=== PATIENT | male | born 1935 | race Caucasian/White ===

== ENCOUNTER 2018-02-05 09:29 | Inpatient (IN) | payer MEDICARE, BC ==
[2018-02-05 10:54] VITALS: BP 156/78
[2018-02-05] MEDS ORDERED: Maalox 30 mL Cup PO PRN (10:56)
[2018-02-05] MEDS ORDERED: Magnesium Hydroxide (MOM) 30 mL UDC PO PRN (10:56)
--- NOTE | 2018-02-05 12:05 | Diagnostic Imaging Report ---
Portable chest x-ray HISTORY: Shortness of breath. The heart size is normal. Atherosclerotic calcification seen in the aorta. No acute focal pulmonary processes. No hilar or mediastinal abnormalities. IMPRESSION: 1. No acute abnormalities 2. Atherosclerotic vascular changes
[2018-02-05 12:21] LABS: % BASOPHILS 0.6 % (0.0-2.0); % EOSINOPHILS 1.4 % (0.0-5.0); % LYMPHOCYTES 14.6 % (20.0-50.0); % MONOCYTES 8.1 % (2.0-10.0); % NEUTROPHILS 75.3 % (40.0-80.0); EOSINOPHILE ABSOLUTE 0.1 Th/cmm (0.1-0.4); HEMATOCRIT 41.2 % (41.0-60); HEMOGLOBIN 13.8 gm/dL (12-16); LYMPHOCYTE ABSOLUTE 0.9 Th/cmm (1.5-3.0); MEAN CELL VOLUME 95.7 fl (80-99); MEAN CORPUSCULAR HEMOGLOBIN 32.2 pg (27.0-31.0); MEAN CORPUSCULAR HGB CONC 33.6 pg (28.0-36.0); MEAN PLATELET VOLUME 5.6 fl; MONOCYTE ABSOLUTE 0.5 Th/cmm (0.3-1.0); NEUTROPHILE ABSOLUTE 4.5 Th/cmm (1.8-8.0); PLATELET COUNT 276 Th/cmm (150-400); RED CELL DISTRIBUTION WIDTH 12.9 % (11.5-20.0)
[2018-02-05 12:41] LABS: ALB/GLOB RATIO 1.3 (1.0-1.8); ALBUMIN 3.9 gm/dL (4.2-5.5); ALKALINE PHOSPHATASE 68 U/L (34-104); ANION GAP 13.4 (7.0-16.0); BILIRUBIN,TOTAL 0.3 mg/dL (0.3-1.0); BUN - UREA NITROGEN 20 mg/dL (7-25); CALCIUM SERUM 9.3 mg/dL (8.6-10.3); CARBON DIOXIDE 24.9 mEq/L (21.0-31.0); CHLORIDE 103 mEq/L (98-107); CHOLESTEROL 159 mg/dL (<200); CREATININE - SERUM 0.9 mg/dL (0.7-1.3); GLUCOSE 144 mg/dL (70-105); HDL -HIGH DENSITY LIPOPROTEIN 61 mg/dL (23-92); POTASSIUM SERUM 4.3 mEq/L (3.5-5.1); SGOT 19 U/L (13-39); SGPT/ALT 15 U/L (7-52); SODIUM SERUM 137 mEq/L (136-145); TOTAL PROTEIN,SERUM 6.9 gm/dL (6.0-8.3); TRIGLYCERIDES 106 mg/dL (<150)
[2018-02-05] MEDS: Calcium Carb/Vit D 500 mg/200 U Tab PO SCH (17:21)
--- NOTE | 2018-02-05 22:08 | Psychiatric Evaluation ---
DATE OF SERVICE: 02/05/2018 IDENTIFYING DATA: The patient is an 82-year-old male living with his family. Information obtained directly interviewing the patient as well as talking to his daughter who happened to be there by the bedside. CHIEF COMPLAINT: "I don't know. I'm feeling depressed and I want to end my life." HISTORY OF PRESENT ILLNESS: This is the first psychiatric hospitalization to [facility] for this patient who is reported to have been extremely depressed and has been asking his daughter to give some pills, so that he can kill himself. The patient has been very agitated. The patient is reported to have been presenting with depressive symptoms more and more for the past few months and the patient is being treated with the Lexapro, a little bit of Seroquel in July and then now he has been on the mirtazapine 15 mg at bedtime. The dose of the mirtazapine has been given by the research neurologist. The patient is reported to have been taken care of by his until recently and the patient's daughter has been there for the past few days when she has realized the patient has been insisting on ending his life and hence the patient has been brought over here. The patient is reported to have been mentioning that if he were in the hospital. They are going to give an injection where he can end his life. PAST PSYCHIATRIC HISTORY: Details are not known. MEDICAL HISTORY AND PHYSICAL EXAMINATION: Requested to be done by Dr. Elena. SUBSTANCE ABUSE HISTORY: None. PHYSICAL OR SEXUAL ABUSE HISTORY: None. LEGAL PROBLEMS: None at this time. STRENGTH AND ASSETS: The patient has good family support. MENTAL STATUS EXAMINATION: The patient is an 82-year-old very fragile, thin built, superficially cooperative. Eye contact is poor. Mood is noted to be depressed. Affect is constricted. The patient's insight and judgment at this time are noted to be still impaired. Impulse control is very poor. The patient is preoccupied with suicide. Coping skills at this time are noted to be extremely poor. Attention span and concentration are noted to be poor. The patient, however, is fully aware that he is in the hospital. The patient is getting extremely anxious and confused. He has been having difficult time to get his date of , but he states that he is in his 80s. Attention span is noted to be poor. DIAGNOSTIC IMPRESSION: AXIS I: Major depressive disorder, recurrent and severe. AXIS II: None. AXIS III: As per Dr. Elena. IMMEDIATE TREATMENT PLAN: The patient is going to be observed on inpatient unit, provided with supportive psychotherapy. The patient is going to be encouraged to verbalize the concerns rather than to act out. Once stabilized, the patient is going to be discharged to self to be followed up on an outpatient basis. The patient is going to be continued for now with the Remeron and the patient's blood pressure is coming high and hence the patient is going to be started with the metoprolol, which has been recently discontinued. The patient's problems have started after he sustained a fall and multiple medical workups have been done, but they do not find any problem, but the patient is reported to have been incontinent since then on and later the patient is reported to have climbed a tree and when he was trying to cut the branches and then he fell and the family is thinking that these falls have something to do with the patient's deterioration of the medical issues. JOB# [id number]
--- NOTE | 2018-02-06 09:06 | History and Physical ---
History of Present Illness - HPI Chief Complaint: Psychosis HPI: 82 y/o male who presents to [facility] for direct admission to [facility] from [facility] for psychosis with suicidal ideations. The patient was found to have an increased amount of anxiety following two major falls this past year. Patient has been experiencing increased depression and feels like a burden to his family. Patient presents with feelings of hopelessness. Patient has a previous medical history of HTN, Prostate CA, h/o subdural hematoma, UTI on Keflex. Vital Signs: Last Vital Signs Temp 98.3 F 02/06/18 05:34 Pulse 79 02/06/18 05:34 Resp 18 02/06/18 05:34 BP 140/80 02/06/18 05:34 Pulse Ox 97 02/06/18 05:34 Past Medical History Cardiovascular: Report: HTN Pulmonary: Report: No Pertinent Hx [employer]: Report: Other (h/o subdural hematoma) GI: Report: No Pertinent Hx Psych: Report: Anxiety, Depression Musculoskeletal: Report: No Pertinent Hx Rheumatologic: Report: No pertinent Hx Infectious Disease: Report: No Pertinent Hx Renal/: Report: UTI, Prostate CA Endocrine: Report: No Pertinent Hx Dermatology: Report: No Pertinent Hx - Past Surgical History Past Surgical History: No pertinent Hx Social History Smoke: No Alcohol: None Drugs: None Lives: With Family - Allergies Allergies/Adverse Reactions: Allergies Allergy/AdvReac Type Severity Reaction Status Date / Time No Known Allergies Allergy Verified 02/05/18 10:54 Review of Systems - Review of Systems Constitutional: Report: No Significant Eyes: Report: No Significant ENT: Report: No Significant Respiratory: Report: No Significant Cardiovascular: Report: No Significant Gastrointestinal: Report: No Significant Musculoskeletal: Report: No Significant Skin: Report: No Significant Neurological: Report: No Significant Physical Exam - Physical Exam HEENT: Report: Ears Nose Throat within normal limits, Pharnyx within normal limits Neck: Report: Within normal limits Cardiovascular Systems: Report: +s1/s2 noted, Regular, Rate and Rhythm Respiratory: Report: Breath Sounds are within normal limits, Clear to Auscultation of lung rincon Abdomen: Report: Non-tender to palpation Back: Report: Inspection of back is within normal limits. Extremities: Report: Non-tender to palpation. Skin: Report: Color of skin is within normal limits Neuro/Psych: Report: Mood affect is within normal limits, A+Ox3 - Lab Results All Lab Results last 24 hours: Laboratory Results - last 24 hr 02/05/18 02/05/18 12:15 12:15 WBC 6.0 RBC 4.30 Hgb 13.8 Hct 41.2 MCV 95.7 MCH 32.2 H MCHC Differential 33.6 RDW 12.9 Plt Count 276 MPV 5.6 Neutrophils % 75.3 Lymphocytes % 14.6 L Monocytes % 8.1 Eosinophils % 1.4 Basophils % 0.6 Sodium 137 Potassium 4.3 Chloride 103 Carbon Dioxide 24.9 Anion Gap 13.4 BUN 20 Creatinine 0.9 Est GFR ( Amer) TNP Est GFR (Non-Af Amer) TNP BUN/Creatinine Ratio 22.2 Glucose 144 H Calcium 9.3 Total Bilirubin 0.3 AST 19 ALT 15 Alkaline Phosphatase 68 Total Protein 6.9 Albumin 3.9 L Globulin 3.0 Albumin/Globulin Ratio 1.3 Triglycerides 106 Cholesterol 159 LDL Cholesterol Direct 83 HDL Cholesterol 61 - Assessment Assessment: psychosis depression anxiety disorder HTN Prostate CA h/o subdural hematoma UTI - Plan Plan: admit to [facility] continue current treatment.
[2018-02-06] MEDS: Calcium Carb/Vit D 500 mg/200 U Tab PO SCH ×2 (09:45→17:20)
[2018-02-06] MEDS: Multivitamin Tab PO SCH (09:46)
[2018-02-06] MEDS: POLYETHYLENE GLYCOL 3350 17 GM PACK PO SCH (09:46)
--- NOTE | 2018-02-06 23:46 | Progress Notes ---
DATE: 02/06/2018 SUBJECTIVE: Staff was spoken to. The patient is interviewed. Mood is noted to be depressed. Affect is constricted. The patient's daughter has been spoken to in detail. She has been visiting the patient this morning. The patient is stating that getting old and then not able to eat properly is the one that has been making him to be very much depressed. The patient's daughter has been there and stating that he has been eating alright, but at the same time, he is very critical of himself and has been ____ to suicidal thoughts. The patient's coping skills are noted to be very poor. The patient is reporting that his should be coming in this afternoon to visit him. ASSESSMENT: The patient is still depressed and suicidal. PLAN: To continue the patient with the supportive therapy. I encouraged the patient to verbalize the concerns rather than to act out. [facility]# [id number]
--- NOTE | 2018-02-07 08:24 | General Progress Note ---
Subjective - Review of Systems Service Date: 02/07/18 Subjective: Patient was seen and examined. VS T 98.3 P78 R18 BP 114/53 Objective - Results Result Diagrams: 02/05/18 12:15 02/05/18 12:15 Recent Labs: Laboratory Last Values WBC 6.0 Th/cmm (4.8-10.8) 02/05/18 12:15 RBC 4.30 Mil/cmm (3.80-5.80) 02/05/18 12:15 Hgb 13.8 gm/dL (12-16) 02/05/18 12:15 Hct 41.2 % (41.0-60) 02/05/18 12:15 MCV 95.7 fl (80-99) 02/05/18 12:15 MCH 32.2 pg (27.0-31.0) H 02/05/18 12:15 MCHC Differential 33.6 pg (28.0-36.0) 02/05/18 12:15 RDW 12.9 % (11.5-20.0) 02/05/18 12:15 Plt Count 276 Th/cmm (150-400) 02/05/18 12:15 MPV 5.6 fl 02/05/18 12:15 Neutrophils % 75.3 % (40.0-80.0) 02/05/18 12:15 Lymphocytes % 14.6 % (20.0-50.0) L 02/05/18 12:15 Monocytes % 8.1 % (2.0-10.0) 02/05/18 12:15 Eosinophils % 1.4 % (0.0-5.0) 02/05/18 12:15 Basophils % 0.6 % (0.0-2.0) 02/05/18 12:15 Sodium 137 mEq/L (136-145) 02/05/18 12:15 Potassium 4.3 mEq/L (3.5-5.1) 02/05/18 12:15 Chloride 103 mEq/L (98-107) 02/05/18 12:15 Carbon Dioxide 24.9 mEq/L (21.0-31.0) 02/05/18 12:15 Anion Gap 13.4 (7.0-16.0) 02/05/18 12:15 BUN 20 mg/dL (7-25) 02/05/18 12:15 Creatinine 0.9 mg/dL (0.7-1.3) 02/05/18 12:15 Est GFR ( Amer) TNP 02/05/18 12:15 Est GFR (Non-Af Amer) TNP 02/05/18 12:15 BUN/Creatinine Ratio 22.2 02/05/18 12:15 Glucose 144 mg/dL (70-105) H 02/05/18 12:15 Calcium 9.3 mg/dL (8.6-10.3) 02/05/18 12:15 Total Bilirubin 0.3 mg/dL (0.3-1.0) 02/05/18 12:15 AST 19 U/L (13-39) 02/05/18 12:15 ALT 15 U/L (7-52) 02/05/18 12:15 Alkaline Phosphatase 68 U/L (34-104) 02/05/18 12:15 Total Protein 6.9 gm/dL (6.0-8.3) 02/05/18 12:15 Albumin 3.9 gm/dL (4.2-5.5) L 02/05/18 12:15 Globulin 3.0 gm/dL 02/05/18 12:15 Albumin/Globulin Ratio 1.3 (1.0-1.8) 02/05/18 12:15 Triglycerides 106 mg/dL (<150) 02/05/18 12:15 Cholesterol 159 mg/dL (<200) 02/05/18 12:15 LDL Cholesterol Direct 83 mg/dL (75-193) 02/05/18 12:15 HDL Cholesterol 61 mg/dL (23-92) 02/05/18 12:15 - Physical Exam Vitals and I&O: Vital Signs Temp 98.3 F 02/07/18 06:52 Pulse 78 02/07/18 06:52 Resp 18 02/07/18 06:52 BP 114/53 02/07/18 06:52 Pulse Ox 98 02/07/18 06:52 Intake & Output 02/06/18 02/07/18 02/07/18 18:59 06:59 18:59 Intake Total 120 Balance 120 Intake: Oral 120 Other: # Voids 3 # Bowel Movements 2 Active Medications: Current Medications Acetaminophen (Tylenol) 650 mg PO Q4HR PRN PRN Reason: Mild Pain / Temp above 100 Stop: 04/06/18 10:55 Calcium/Vitamin D (Oscal W/Vitamin D) 1 tab PO BID [facility] Stop: 04/06/18 16:59 Last Admin: 02/06/18 17:20 Dose: 1 tab Cephalexin Monohydrate (Keflex) 500 mg PO QID SUSIE Stop: 02/11/18 12:59 Last Admin: 02/06/18 20:39 Dose: 500 mg Docusate Sodium (Colace) 100 mg PO BID [facility] Stop: 04/06/18 16:59 Last Admin: 02/06/18 17:21 Dose: 100 mg Furosemide (Lasix) 20 mg PO DAILY PRN PRN Reason: Leg Swelling Stop: 04/07/18 08:59 Lorazepam (Ativan) 0.5 mg PO Q4HR PRN; Protocol PRN Reason: Agitation Stop: 03/07/18 10:55 Magnesium Hydroxide (Milk Of Magnesia) 30 ml PO HS PRN PRN Reason: Constipation Metoprolol Tartrate (Lopressor) 25 mg PO BID [facility] Stop: 04/06/18 16:59 Last Admin: 02/06/18 17:24 Dose: 25 mg Mirtazapine (Remeron) 7.5 mg PO HS SUSIE; Protocol Stop: 04/07/18 20:59 Last Admin: 02/06/18 20:40 Dose: 7.5 mg Multivitamins/Vitamin C (Theragran) 1 tab PO DAILY SUSIE Stop: 04/07/18 08:59 Last Admin: 02/06/18 09:46 Dose: 1 tab Polyethylene Glycol (Miralax) 17 gm PO DAILY SUSIE Stop: 04/07/18 08:59 Last Admin: 02/06/18 09:46 Dose: 17 gm Tamsulosin HCl (Flomax) 0.4 mg PO DAILY SUSIE Stop: 04/07/18 08:59 Last Admin: 02/06/18 09:47 Dose: 0.4 mg Zolpidem Tartrate (Ambien) 5 mg PO HS PRN PRN Reason: Insomnia Stop: 04/06/18 10:55 Last Admin: 02/06/18 20:39 Dose: 5 mg General: Alert, No acute distress HEENT: Atraumatic, PERRLA, EOMI Neck: Supple Cardiovascular: Regular rate, Normal S1 Lungs: Clear to auscultation Abdomen: Bowel sounds Neurological: Normal gait Assessment/Plan - Assessment Assessment: psychosis depression anxiety disorder HTN Prostate CA h/o subdural hematoma UTI - [facility] current treatment.
[2018-02-07] MEDS: Calcium Carb/Vit D 500 mg/200 U Tab PO SCH ×2 (08:41→16:48)
[2018-02-07] MEDS: Multivitamin Tab PO SCH (08:41)
[2018-02-07] MEDS: POLYETHYLENE GLYCOL 3350 17 GM PACK PO SCH (08:44)
--- NOTE | 2018-02-07 11:23 | Progress Notes ---
DATE: 02/07/2018 SUBJECTIVE: Staff was spoken to. The patient is interviewed. Mood is noted to be irritable. Affect is constricted. The patient continues to be isolative and withdrawn. The patient is still depressed. The patient is not able to verbalize why he has gotten to the point of hurting himself. The patient has been participating in the groups minimally; even though patient is eating, the patient states that he cannot eat. The patient's coping skills at this time are noted to be very poor at this time. ASSESSMENT: The patient is still depressed. PLAN: To continue the patient with the supportive therapy, encouraged the patient to verbalize the concerns rather than to act out. [facility]# [id number]
--- NOTE | 2018-02-07 16:42 | Consultation ---
DATE OF CONSULTATION: 02/06/2018 REFERRING PHYSICIAN: Aurora Llanos MD TYPE OF CONSULTATION: Psychology. HISTORY OF PRESENT ILLNESS: The patient is an 82-year-old male. The following is by review of the medical record and by the patient's self-report. The patient is being admitted due to increased agitation and depression. The patient's family reports that the patient had been depressed for several months even though he was being treated with Lexapro. The patient had verbalized to his family that he wanted to end his life. Therefore, the patient was brought here for stabilization. The patient lives with his family. The patient admits stating his wish to . PAST MEDICAL HISTORY: Please see history and physical by Dr. Elena. PAST PSYCHIATRIC HISTORY: Unknown. Records are unavailable. Information is provided by family mentioning history for depression. SUBSTANCE ABUSE HISTORY: The patient denied any history. PSYCHOSOCIAL HISTORY: The patient lives with his and family. The patient did not answer questions about occupational or educational history or mandaen affiliation. The patient denies any history of physical or sexual abuse or any current legal problems. The patient expects to return to living with his family. However, the patient is verbalizing an active wish to . The patient's daughter is very involved in his care. MENTAL STATUS EXAMINATION: The patient appears to be his stated age. The patient also appears to be fragile and thinly built. Attitude is superficially cooperative. Eye contact is poor. Mood is severely depressed. Affect is constricted. Speech is spontaneous. Thought process is depressogenic including helplessness and hopelessness as well as verbalizing a wish to . The patient admits having suicidal ideation with a plan and intention. The patient was requesting an injection to end his life and also asked his daughter to give him some pills, so that he could kill himself. There are no apparent delusions; however, this needs to be further evaluated. The patient is preoccupied with suicidal thinking. Impulse control is inadequate. Concentration is poor. Sensorium is alert and oriented to self and place. The patient did not participate in the memory assessment. The patient did not participate in the interpretation of proverbs. The patient presents as confused. Insight is impaired. Judgment is impaired. DIAGNOSTIC IMPRESSION: AXIS I: Major depressive disorder, recurrent, severe with suicidal ideation. AXIS II: Deferred. AXIS III: Per Dr. Elena. TREATMENT PLAN: The patient has been seen by Dr. Llanos for psychiatric evaluation and for the management of the patient's psychotropic medications. We will provide supportive psychotherapy to include reality orientation and integration. We will provide suicide prevention. We will encourage the patient to verbally contract for safety and no self-harm. We will encourage the patient to verbalize all his concerns versus any self-harm behavior. We will provide cognitive behavioral therapy for the patient's depression. We will provide coping strategies for phase of life issues. It is recommended that a possible Neurology consult to be provided and evaluation for dementia. We will provide family education if the opportunity is presented. We will continue with supportive therapy throughout the patient's hospital stay. Thank you, Dr. Llanos, for this consult and the opportunity to participate in this patient's care. JOB# [id number] MTDD
--- NOTE | 2018-02-08 08:25 | General Progress Note ---
Subjective - Review of Systems Service Date: 02/08/18 Subjective: Patient was seen and examined. VS T 98.0 P69 R19 BP 128/58 Objective - Results Result Diagrams: 02/05/18 12:15 02/05/18 12:15 Recent Labs: Laboratory Last Values WBC 6.0 Th/cmm (4.8-10.8) 02/05/18 12:15 RBC 4.30 Mil/cmm (3.80-5.80) 02/05/18 12:15 Hgb 13.8 gm/dL (12-16) 02/05/18 12:15 Hct 41.2 % (41.0-60) 02/05/18 12:15 MCV 95.7 fl (80-99) 02/05/18 12:15 MCH 32.2 pg (27.0-31.0) H 02/05/18 12:15 MCHC Differential 33.6 pg (28.0-36.0) 02/05/18 12:15 RDW 12.9 % (11.5-20.0) 02/05/18 12:15 Plt Count 276 Th/cmm (150-400) 02/05/18 12:15 MPV 5.6 fl 02/05/18 12:15 Neutrophils % 75.3 % (40.0-80.0) 02/05/18 12:15 Lymphocytes % 14.6 % (20.0-50.0) L 02/05/18 12:15 Monocytes % 8.1 % (2.0-10.0) 02/05/18 12:15 Eosinophils % 1.4 % (0.0-5.0) 02/05/18 12:15 Basophils % 0.6 % (0.0-2.0) 02/05/18 12:15 Sodium 137 mEq/L (136-145) 02/05/18 12:15 Potassium 4.3 mEq/L (3.5-5.1) 02/05/18 12:15 Chloride 103 mEq/L (98-107) 02/05/18 12:15 Carbon Dioxide 24.9 mEq/L (21.0-31.0) 02/05/18 12:15 Anion Gap 13.4 (7.0-16.0) 02/05/18 12:15 BUN 20 mg/dL (7-25) 02/05/18 12:15 Creatinine 0.9 mg/dL (0.7-1.3) 02/05/18 12:15 Est GFR ( Amer) TNP 02/05/18 12:15 Est GFR (Non-Af Amer) TNP 02/05/18 12:15 BUN/Creatinine Ratio 22.2 02/05/18 12:15 Glucose 144 mg/dL (70-105) H 02/05/18 12:15 Calcium 9.3 mg/dL (8.6-10.3) 02/05/18 12:15 Total Bilirubin 0.3 mg/dL (0.3-1.0) 02/05/18 12:15 AST 19 U/L (13-39) 02/05/18 12:15 ALT 15 U/L (7-52) 02/05/18 12:15 Alkaline Phosphatase 68 U/L (34-104) 02/05/18 12:15 Total Protein 6.9 gm/dL (6.0-8.3) 02/05/18 12:15 Albumin 3.9 gm/dL (4.2-5.5) L 02/05/18 12:15 Globulin 3.0 gm/dL 02/05/18 12:15 Albumin/Globulin Ratio 1.3 (1.0-1.8) 02/05/18 12:15 Triglycerides 106 mg/dL (<150) 02/05/18 12:15 Cholesterol 159 mg/dL (<200) 02/05/18 12:15 LDL Cholesterol Direct 83 mg/dL (75-193) 02/05/18 12:15 HDL Cholesterol 61 mg/dL (23-92) 02/05/18 12:15 - Physical Exam Vitals and I&O: Vital Signs Temp 98 F 02/07/18 20:24 Pulse 69 02/07/18 20:24 Resp 19 02/07/18 20:24 BP 128/58 02/07/18 20:24 Pulse Ox 94 02/07/18 20:24 Intake & Output 02/07/18 02/08/18 02/08/18 18:59 06:59 18:59 Intake Total 240 Balance 240 Intake: Oral 240 Other: # Voids 1 Active Medications: Current Medications Acetaminophen (Tylenol) 650 mg PO Q4HR PRN PRN Reason: Mild Pain / Temp above 100 Stop: 04/06/18 10:55 Calcium/Vitamin D (Oscal W/Vitamin D) 1 tab PO BID [facility]IE Stop: 04/06/18 16:59 Last Admin: 02/07/18 16:48 Dose: 1 tab Cephalexin Monohydrate (Keflex) 500 mg PO QID [facility]USIE Stop: 02/11/18 12:59 Last Admin: 02/07/18 21:00 Dose: 500 mg Docusate Sodium (Colace) 100 mg PO BID [facility] Stop: 04/06/18 16:59 Last Admin: 02/07/18 16:47 Dose: 100 mg Furosemide (Lasix) 20 mg PO DAILY PRN PRN Reason: Leg Swelling Stop: 04/07/18 08:59 Lorazepam (Ativan) 0.5 mg PO Q4HR PRN; Protocol PRN Reason: Agitation Stop: 03/07/18 10:55 Magnesium Hydroxide (Milk Of Magnesia) 30 ml PO HS PRN PRN Reason: Constipation Metoprolol Tartrate (Lopressor) 25 mg PO BID [facility]IE Stop: 04/06/18 16:59 Last Admin: 02/07/18 16:48 Dose: 25 mg Mirtazapine (Remeron) 7.5 mg PO HS SUSIE; Protocol Stop: 04/07/18 20:59 Last Admin: 02/07/18 21:00 Dose: 7.5 mg Multivitamins/Vitamin C (Theragran) 1 tab PO DAILY [facility]USIE Stop: 04/07/18 08:59 Last Admin: 02/07/18 08:41 Dose: 1 tab Polyethylene Glycol (Miralax) 17 gm PO DAILY SUSIE Stop: 04/07/18 08:59 Last Admin: 02/07/18 08:44 Dose: 17 gm Tamsulosin HCl (Flomax) 0.4 mg PO DAILY SUSIE Stop: 04/07/18 08:59 Last Admin: 02/07/18 08:41 Dose: 0.4 mg Zolpidem Tartrate (Ambien) 5 mg PO HS PRN PRN Reason: Insomnia Stop: 04/06/18 10:55 Last Admin: 02/06/18 20:39 Dose: 5 mg General: Alert, No acute distress HEENT: Atraumatic, PERRLA, EOMI Neck: Supple Cardiovascular: Regular rate, Normal S1 Lungs: Clear to auscultation Abdomen: Bowel sounds Neurological: Normal gait Assessment/Plan - Assessment Assessment: psychosis depression anxiety disorder HTN Prostate CA h/o subdural hematoma UTI - Plan Plan: admit to [facility] continue current treatment.
[2018-02-08] MEDS: POLYETHYLENE GLYCOL 3350 17 GM PACK PO SCH (10:24)
[2018-02-08] MEDS: Multivitamin Tab PO SCH (10:25)
[2018-02-08] MEDS: Calcium Carb/Vit D 500 mg/200 U Tab PO SCH ×2 (10:25→18:10)
--- NOTE | 2018-02-09 00:51 | Progress Notes ---
DATE: 02/08/2018 PSYCHIATRIC PROGRESS NOTE SUBJECTIVE: Staff was spoken to. The patient is interviewed. The patient's has been spoken to at length. The patient is reported to have a major change in his lifestyle since he has sustained an injury to the head. The patient is following that and had couple of MRIs and 24-hour electroencephalograms nothing showed as any problem with him. The patient's major concerns at this time are noted to be one that he is incontinent and he is not able to eat and he is having difficult time being old. The patient's has been spoken to and the has been stating that the depression has not resolved even with the Lexapro or the Seroquel or the Remeron that was given and the patient's has been explained clearly about the Wellbutrin and a trial with Wellbutrin is going to be given and then the patient is going to be closely monitored. The patient is still suicidal and depressed and hence he is not ready to be discharged to a lower level of care yet. JOB# [id number]
--- NOTE | 2018-02-09 05:14 | General Progress Note ---
Subjective - Review of Systems Service Date: 02/09/18 Subjective: Patient was seen and examined. VS T 98.0 P73 R20 BP 124/67 Objective - Results Result Diagrams: 02/05/18 12:15 02/05/18 12:15 Recent Labs: Laboratory Last Values WBC 6.0 Th/cmm (4.8-10.8) 02/05/18 12:15 RBC 4.30 Mil/cmm (3.80-5.80) 02/05/18 12:15 Hgb 13.8 gm/dL (12-16) 02/05/18 12:15 Hct 41.2 % (41.0-60) 02/05/18 12:15 MCV 95.7 fl (80-99) 02/05/18 12:15 MCH 32.2 pg (27.0-31.0) H 02/05/18 12:15 MCHC Differential 33.6 pg (28.0-36.0) 02/05/18 12:15 RDW 12.9 % (11.5-20.0) 02/05/18 12:15 Plt Count 276 Th/cmm (150-400) 02/05/18 12:15 MPV 5.6 fl 02/05/18 12:15 Neutrophils % 75.3 % (40.0-80.0) 02/05/18 12:15 Lymphocytes % 14.6 % (20.0-50.0) L 02/05/18 12:15 Monocytes % 8.1 % (2.0-10.0) 02/05/18 12:15 Eosinophils % 1.4 % (0.0-5.0) 02/05/18 12:15 Basophils % 0.6 % (0.0-2.0) 02/05/18 12:15 Sodium 137 mEq/L (136-145) 02/05/18 12:15 Potassium 4.3 mEq/L (3.5-5.1) 02/05/18 12:15 Chloride 103 mEq/L (98-107) 02/05/18 12:15 Carbon Dioxide 24.9 mEq/L (21.0-31.0) 02/05/18 12:15 Anion Gap 13.4 (7.0-16.0) 02/05/18 12:15 BUN 20 mg/dL (7-25) 02/05/18 12:15 Creatinine 0.9 mg/dL (0.7-1.3) 02/05/18 12:15 Est GFR ( Amer) TNP 02/05/18 12:15 Est GFR (Non-Af Amer) TNP 02/05/18 12:15 BUN/Creatinine Ratio 22.2 02/05/18 12:15 Glucose 144 mg/dL (70-105) H 02/05/18 12:15 Calcium 9.3 mg/dL (8.6-10.3) 02/05/18 12:15 Total Bilirubin 0.3 mg/dL (0.3-1.0) 02/05/18 12:15 AST 19 U/L (13-39) 02/05/18 12:15 ALT 15 U/L (7-52) 02/05/18 12:15 Alkaline Phosphatase 68 U/L (34-104) 02/05/18 12:15 Total Protein 6.9 gm/dL (6.0-8.3) 02/05/18 12:15 Albumin 3.9 gm/dL (4.2-5.5) L 02/05/18 12:15 Globulin 3.0 gm/dL 02/05/18 12:15 Albumin/Globulin Ratio 1.3 (1.0-1.8) 02/05/18 12:15 Triglycerides 106 mg/dL (<150) 02/05/18 12:15 Cholesterol 159 mg/dL (<200) 02/05/18 12:15 LDL Cholesterol Direct 83 mg/dL (75-193) 02/05/18 12:15 HDL Cholesterol 61 mg/dL (23-92) 02/05/18 12:15 RPR NONREACTIVE (NONREACTIVE) 02/05/18 12:15 - Physical Exam Vitals and I&O: Vital Signs Temp 98 F 02/08/18 20:32 Pulse 73 02/08/18 20:32 Resp 20 02/08/18 20:32 BP 124/67 02/08/18 20:32 Pulse Ox 98 02/08/18 20:32 Intake & Output 02/08/18 02/08/18 02/09/18 06:59 18:59 06:59 Intake Total 240 1500 240 Balance 240 1500 240 Intake: Oral 240 1500 240 Other: # Voids 1 3 2 # Bowel Movements 1 Active Medications: Current Medications Acetaminophen (Tylenol) 650 mg PO Q4HR PRN PRN Reason: Mild Pain / Temp above 100 Stop: 04/06/18 10:55 Bupropion HCl (Wellbutrin Sr) 100 mg PO DAILY [facility]; Protocol Stop: 04/10/18 08:59 Calcium/Vitamin D (Oscal W/Vitamin D) 1 tab PO BID [facility] Stop: 04/06/18 16:59 Last Admin: 02/08/18 18:10 Dose: 1 tab Cephalexin Monohydrate (Keflex) 500 mg PO QID [facility] Stop: 02/11/18 12:59 Last Admin: 02/08/18 22:00 Dose: 500 mg Docusate Sodium (Colace) 100 mg PO BID [facility] Stop: 04/06/18 16:59 Last Admin: 02/08/18 18:10 Dose: 100 mg Furosemide (Lasix) 20 mg PO DAILY PRN PRN Reason: Leg Swelling Stop: 04/07/18 08:59 Lorazepam (Ativan) 0.5 mg PO Q4HR PRN; Protocol PRN Reason: Agitation Stop: 03/07/18 10:55 Magnesium Hydroxide (Milk Of Magnesia) 30 ml PO HS PRN PRN Reason: Constipation Metoprolol Tartrate (Lopressor) 25 mg PO BID [facility] Stop: 04/06/18 16:59 Last Admin: 02/08/18 18:10 Dose: 25 mg Mirtazapine (Remeron) 7.5 mg PO HS [facility]; Protocol Stop: 04/07/18 20:59 Last Admin: 02/08/18 22:00 Dose: 7.5 mg Multivitamins/Vitamin C (Theragran) 1 tab PO DAILY [facility] Stop: 04/07/18 08:59 Last Admin: 02/08/18 10:25 Dose: 1 tab Polyethylene Glycol (Miralax) 17 gm PO DAILY [facility] Stop: 04/07/18 08:59 Last Admin: 02/08/18 10:24 Dose: 17 gm Tamsulosin HCl (Flomax) 0.4 mg PO DAILY [facility] Stop: 04/07/18 08:59 Last Admin: 02/08/18 10:25 Dose: 0.4 mg Zolpidem Tartrate (Ambien) 5 mg PO HS PRN PRN Reason: Insomnia Stop: 04/06/18 10:55 Last Admin: 02/08/18 22:15 Dose: 5 mg General: Alert, No acute distress HEENT: Atraumatic, PERRLA, EOMI Neck: Supple Cardiovascular: Regular rate, Normal S1 Lungs: Clear to auscultation Abdomen: Bowel sounds Neurological: Normal gait Assessment/Plan - Assessment Assessment: psychosis depression anxiety disorder HTN Prostate CA h/o subdural hematoma UTI - Plan Plan: admit to [facility] continue current treatment.
[2018-02-09] MEDS: POLYETHYLENE GLYCOL 3350 17 GM PACK PO SCH (08:45)
[2018-02-09] MEDS: Calcium Carb/Vit D 500 mg/200 U Tab PO SCH ×2 (08:46→17:58)
[2018-02-09] MEDS: Multivitamin Tab PO SCH (08:46)
--- NOTE | 2018-02-09 13:00 | Progress Notes ---
DATE: 02/09/2018 PSYCHIATRIC PROGRESS NOTE SUBJECTIVE: Staff was spoken to. The patient is interviewed. Mood is noted to be depressed. Affect is constricted. The patient is stating that he is no good and he cannot eat. Last night, I met with his and the patient has a good dinner and the patient is stating that he is happy to be in here. Since the patient's has been mentioned that the patient has not responded to the Remeron, Lexapro and Seroquel. It is decided to start the patient on the Wellbutrin and the patient is going to be closely monitored with that medication. ASSESSMENT: The patient is still depressed and suicidal. PLAN: To continue the patient with the supportive therapy. I encouraged the patient to verbalize the concerns rather than to act out. JOB# [id number]
--- NOTE | 2018-02-10 05:51 | General Progress Note ---
Subjective - Review of Systems Service Date: 02/10/18 Subjective: Patient was seen and examined. VS T 97.6 P56 R19 BP 112/61 Objective - Results Result Diagrams: 02/05/18 12:15 02/05/18 12:15 Recent Labs: Laboratory Last Values WBC 6.0 Th/cmm (4.8-10.8) 02/05/18 12:15 RBC 4.30 Mil/cmm (3.80-5.80) 02/05/18 12:15 Hgb 13.8 gm/dL (12-16) 02/05/18 12:15 Hct 41.2 % (41.0-60) 02/05/18 12:15 MCV 95.7 fl (80-99) 02/05/18 12:15 MCH 32.2 pg (27.0-31.0) H 02/05/18 12:15 MCHC Differential 33.6 pg (28.0-36.0) 02/05/18 12:15 RDW 12.9 % (11.5-20.0) 02/05/18 12:15 Plt Count 276 Th/cmm (150-400) 02/05/18 12:15 MPV 5.6 fl 02/05/18 12:15 Neutrophils % 75.3 % (40.0-80.0) 02/05/18 12:15 Lymphocytes % 14.6 % (20.0-50.0) L 02/05/18 12:15 Monocytes % 8.1 % (2.0-10.0) 02/05/18 12:15 Eosinophils % 1.4 % (0.0-5.0) 02/05/18 12:15 Basophils % 0.6 % (0.0-2.0) 02/05/18 12:15 Sodium 137 mEq/L (136-145) 02/05/18 12:15 Potassium 4.3 mEq/L (3.5-5.1) 02/05/18 12:15 Chloride 103 mEq/L (98-107) 02/05/18 12:15 Carbon Dioxide 24.9 mEq/L (21.0-31.0) 02/05/18 12:15 Anion Gap 13.4 (7.0-16.0) 02/05/18 12:15 BUN 20 mg/dL (7-25) 02/05/18 12:15 Creatinine 0.9 mg/dL (0.7-1.3) 02/05/18 12:15 Est GFR ( Amer) TNP 02/05/18 12:15 Est GFR (Non-Af Amer) TNP 02/05/18 12:15 BUN/Creatinine Ratio 22.2 02/05/18 12:15 Glucose 144 mg/dL (70-105) H 02/05/18 12:15 Calcium 9.3 mg/dL (8.6-10.3) 02/05/18 12:15 Total Bilirubin 0.3 mg/dL (0.3-1.0) 02/05/18 12:15 AST 19 U/L (13-39) 02/05/18 12:15 ALT 15 U/L (7-52) 02/05/18 12:15 Alkaline Phosphatase 68 U/L (34-104) 02/05/18 12:15 Total Protein 6.9 gm/dL (6.0-8.3) 02/05/18 12:15 Albumin 3.9 gm/dL (4.2-5.5) L 02/05/18 12:15 Globulin 3.0 gm/dL 02/05/18 12:15 Albumin/Globulin Ratio 1.3 (1.0-1.8) 02/05/18 12:15 Triglycerides 106 mg/dL (<150) 02/05/18 12:15 Cholesterol 159 mg/dL (<200) 02/05/18 12:15 LDL Cholesterol Direct 83 mg/dL (75-193) 02/05/18 12:15 HDL Cholesterol 61 mg/dL (23-92) 02/05/18 12:15 RPR NONREACTIVE (NONREACTIVE) 02/05/18 12:15 - Physical Exam Vitals and I&O: Vital Signs Temp 97.6 F 02/09/18 20:00 Pulse 58 02/09/18 20:00 Resp 19 02/09/18 20:00 BP 112/61 02/09/18 20:00 Pulse Ox 97 02/09/18 20:00 Intake & Output 02/09/18 02/09/18 02/10/18 06:59 18:59 06:59 Intake Total 240 1700 Balance 240 1700 Intake: Oral 240 1700 Other: # Voids 3 3 # Bowel Movements 0 1 Active Medications: Current Medications Acetaminophen (Tylenol) 650 mg PO Q4HR PRN PRN Reason: Mild Pain / Temp above 100 Stop: 04/06/18 10:55 Bupropion HCl (Wellbutrin Sr) 100 mg PO DAILY [facility]; Protocol Stop: 04/10/18 08:59 Last Admin: 02/09/18 13:10 Dose: 100 mg Calcium/Vitamin D (Oscal W/Vitamin D) 1 tab PO BID [facility] Stop: 04/06/18 16:59 Last Admin: 02/09/18 17:58 Dose: 1 tab Cephalexin Monohydrate (Keflex) 500 mg PO QID [facility] Stop: 02/11/18 12:59 Last Admin: 02/09/18 20:21 Dose: 500 mg Docusate Sodium (Colace) 100 mg PO BID [facility] Stop: 04/06/18 16:59 Last Admin: 02/09/18 08:46 Dose: 100 mg Furosemide (Lasix) 20 mg PO DAILY PRN PRN Reason: Leg Swelling Stop: 04/07/18 08:59 Lorazepam (Ativan) 0.5 mg PO Q4HR PRN; Protocol PRN Reason: Agitation Stop: 03/07/18 10:55 Magnesium Hydroxide (Milk Of Magnesia) 30 ml PO HS PRN PRN Reason: Constipation Metoprolol Tartrate (Lopressor) 25 mg PO BID [facility] Stop: 04/06/18 16:59 Last Admin: 02/09/18 17:59 Dose: 25 mg Mirtazapine (Remeron) 7.5 mg PO HS [facility]; Protocol Stop: 04/07/18 20:59 Last Admin: 02/09/18 20:21 Dose: 7.5 mg Multivitamins/Vitamin C (Theragran) 1 tab PO DAILY [facility] Stop: 04/07/18 08:59 Last Admin: 02/09/18 08:46 Dose: 1 tab Polyethylene Glycol (Miralax) 17 gm PO DAILY [facility] Stop: 04/07/18 08:59 Last Admin: 02/09/18 08:45 Dose: 17 gm Tamsulosin HCl (Flomax) 0.4 mg PO DAILY [facility] Stop: 04/07/18 08:59 Last Admin: 02/09/18 08:46 Dose: 0.4 mg Zolpidem Tartrate (Ambien) 5 mg PO HS PRN PRN Reason: Insomnia Stop: 04/06/18 10:55 Last Admin: 02/09/18 20:21 Dose: 5 mg General: Alert, No acute distress HEENT: Atraumatic, PERRLA, EOMI Neck: Supple Cardiovascular: Regular rate, Normal S1 Lungs: Clear to auscultation Abdomen: Bowel sounds Neurological: Normal gait Assessment/Plan - Assessment Assessment: psychosis depression anxiety disorder HTN controlled Prostate CA h/o subdural hematoma UTI - Plan Plan: admit to [facility] continue current treatment. Nutritional Asmnt/Malnutr-PDOC - Dietary Evaluation Malnutrition Findings (Please click <Entered> for more info): Nutritional Asmnt/Malnutrition Start: 02/09/18 10: 09 Text: Status: Active Freq: Protocol: Document 02/09/18 10:09 JESUS (Rec: 02/09/18 10:13 JESUS ANGI- [email or web address]) Nutritional Asmnt/Malnutrition Patient General Information Diagnosis psychosis Pertinent Medical Hx/Surgical Hx anxiety, depression, HTN, prostate CA, subdural hematoma , UTI Subjective Information Pt walking the halls, reported good appetite and no nutrition concerns at this time. Current Diet Order/ Nutrition Support regular Pertinent Medications oscal with vit D, colace, lasix, MOM, theragran, miralax Pertinent Labs 02/05: Na 137, K 4.3, Cl 103, CO2 24.4, BUN 20, Cr 0.9, glucose 144, Ca 9.3 Nutritional Hx/Data Height 1.78 m Height (Calculated Centimeters) 177.8 Current Weight (lbs) 67.132 kg Weight (Calculated Kilograms) 67.1 Weight (Calculated Grams) 25205.7 Body Mass Index (BMI) 21.2 Weight Status Approriate GI Symptoms GI Symptoms None Last BM 02/08 Cultural/Ethnic/Orthodox Belief unknown Usual diet at home regular Skin Integrity/Comment: harmeet score 21 Estimated Nutritional Goals BEE in Kcals: Using Current wt Calories/Kcals/Kg 25-30kcals/kg Kcals Calculated 1675-2010kcals/day Protein: Using Current wt Protein g/kg/kg Protein Calculated 67g/day Fluid: ml 1675-2010ml/day (1ml/kcal) Nutritional Problem 1. Problem Problem No nutrition diagnosis at this time Intervention/Recommendation Comments Recommend continuing Regular diet Expected Outcomes/Goals Expected Outcomes/Goals PO intake >75% of meals
[2018-02-10] MEDS: POLYETHYLENE GLYCOL 3350 17 GM PACK PO SCH (09:46)
[2018-02-10] MEDS: Calcium Carb/Vit D 500 mg/200 U Tab PO SCH ×2 (09:47→16:58)
[2018-02-10] MEDS: Multivitamin Tab PO SCH (09:47)
--- NOTE | 2018-02-10 21:00 | Progress Notes ---
DATE: 02/10/2018 SUBJECTIVE: Staff was spoken to. The patient is interviewed. Mood is noted to be depressed. Affect is constricted. The patient is refusing for the staff to put the ____ back on. Coping skills at this time are noted to be very poor. Insight and judgment are also noted to be very much impaired. The patient has been having difficult time to cope with the stress. The patient yesterday was mentioning he was not able to eat, but this morning he is reported to have a lot of breakfast. ASSESSMENT: The patient is still depressed, suicidal ideation is a major concern. PLAN: To continue the patient with the supportive therapy, encouraged the patient to verbalize the concerns rather than to act out. [facility]# [id number]
--- NOTE | 2018-02-11 08:09 | General Progress Note ---
Subjective - Review of Systems Service Date: 02/11/18 Subjective: Patient was seen and examined. VS T 98.2 P61 R20 BP 159/75 Objective - Results Result Diagrams: 02/05/18 12:15 02/05/18 12:15 Recent Labs: Laboratory Last Values WBC 6.0 Th/cmm (4.8-10.8) 02/05/18 12:15 RBC 4.30 Mil/cmm (3.80-5.80) 02/05/18 12:15 Hgb 13.8 gm/dL (12-16) 02/05/18 12:15 Hct 41.2 % (41.0-60) 02/05/18 12:15 MCV 95.7 fl (80-99) 02/05/18 12:15 MCH 32.2 pg (27.0-31.0) H 02/05/18 12:15 MCHC Differential 33.6 pg (28.0-36.0) 02/05/18 12:15 RDW 12.9 % (11.5-20.0) 02/05/18 12:15 Plt Count 276 Th/cmm (150-400) 02/05/18 12:15 MPV 5.6 fl 02/05/18 12:15 Neutrophils % 75.3 % (40.0-80.0) 02/05/18 12:15 Lymphocytes % 14.6 % (20.0-50.0) L 02/05/18 12:15 Monocytes % 8.1 % (2.0-10.0) 02/05/18 12:15 Eosinophils % 1.4 % (0.0-5.0) 02/05/18 12:15 Basophils % 0.6 % (0.0-2.0) 02/05/18 12:15 Sodium 137 mEq/L (136-145) 02/05/18 12:15 Potassium 4.3 mEq/L (3.5-5.1) 02/05/18 12:15 Chloride 103 mEq/L (98-107) 02/05/18 12:15 Carbon Dioxide 24.9 mEq/L (21.0-31.0) 02/05/18 12:15 Anion Gap 13.4 (7.0-16.0) 02/05/18 12:15 BUN 20 mg/dL (7-25) 02/05/18 12:15 Creatinine 0.9 mg/dL (0.7-1.3) 02/05/18 12:15 Est GFR ( Amer) TNP 02/05/18 12:15 Est GFR (Non-Af Amer) TNP 02/05/18 12:15 BUN/Creatinine Ratio 22.2 02/05/18 12:15 Glucose 144 mg/dL (70-105) H 02/05/18 12:15 Calcium 9.3 mg/dL (8.6-10.3) 02/05/18 12:15 Total Bilirubin 0.3 mg/dL (0.3-1.0) 02/05/18 12:15 AST 19 U/L (13-39) 02/05/18 12:15 ALT 15 U/L (7-52) 02/05/18 12:15 Alkaline Phosphatase 68 U/L (34-104) 02/05/18 12:15 Total Protein 6.9 gm/dL (6.0-8.3) 02/05/18 12:15 Albumin 3.9 gm/dL (4.2-5.5) L 02/05/18 12:15 Globulin 3.0 gm/dL 02/05/18 12:15 Albumin/Globulin Ratio 1.3 (1.0-1.8) 02/05/18 12:15 Triglycerides 106 mg/dL (<150) 02/05/18 12:15 Cholesterol 159 mg/dL (<200) 02/05/18 12:15 LDL Cholesterol Direct 83 mg/dL (75-193) 02/05/18 12:15 HDL Cholesterol 61 mg/dL (23-92) 02/05/18 12:15 RPR NONREACTIVE (NONREACTIVE) 02/05/18 12:15 - Physical Exam Vitals and I&O: Vital Signs Temp 98.2 F 02/11/18 06:37 Pulse 61 02/11/18 06:37 Resp 19 02/11/18 08:00 BP 159/75 02/11/18 06:37 Pulse Ox 99 02/11/18 06:37 Intake & Output 02/10/18 02/11/18 02/11/18 18:59 06:59 18:59 Intake Total 1700 Balance 1700 Intake: Oral 1700 Other: # Voids 3 3 # Bowel Movements 1 0 Stool Characteristics Formed Formed Brown Brown Active Medications: Current Medications Acetaminophen (Tylenol) 650 mg PO Q4HR PRN PRN Reason: Mild Pain / Temp above 100 Stop: 04/06/18 10:55 Bupropion HCl (Wellbutrin Sr) 100 mg PO DAILY [facility]; Protocol Stop: 04/10/18 08:59 Last Admin: 02/10/18 09:47 Dose: 100 mg Calcium/Vitamin D (Oscal W/Vitamin D) 1 tab PO BID [facility] Stop: 04/06/18 16:59 Last Admin: 02/10/18 16:58 Dose: 1 tab Cephalexin Monohydrate (Keflex) 500 mg PO QID [facility] Stop: 02/11/18 12:59 Last Admin: 02/10/18 20:58 Dose: 500 mg Docusate Sodium (Colace) 100 mg PO BID [facility] Stop: 04/06/18 16:59 Last Admin: 02/10/18 16:58 Dose: 100 mg Furosemide (Lasix) 20 mg PO DAILY PRN PRN Reason: Leg Swelling Stop: 04/07/18 08:59 Lorazepam (Ativan) 0.5 mg PO Q4HR PRN; Protocol PRN Reason: Agitation Stop: 03/07/18 10:55 Magnesium Hydroxide (Milk Of Magnesia) 30 ml PO HS PRN PRN Reason: Constipation Metoprolol Tartrate (Lopressor) 25 mg PO BID [facility] Stop: 04/06/18 16:59 Last Admin: 02/10/18 17:00 Dose: 25 mg Mirtazapine (Remeron) 7.5 mg PO HS [facility]; Protocol Stop: 04/07/18 20:59 Last Admin: 02/10/18 20:58 Dose: 7.5 mg Multivitamins/Vitamin C (Theragran) 1 tab PO DAILY [facility] Stop: 04/07/18 08:59 Last Admin: 02/10/18 09:47 Dose: 1 tab Polyethylene Glycol (Miralax) 17 gm PO DAILY [facility] Stop: 04/07/18 08:59 Last Admin: 02/10/18 09:46 Dose: 17 gm Tamsulosin HCl (Flomax) 0.4 mg PO DAILY [facility] Stop: 04/07/18 08:59 Last Admin: 02/10/18 09:48 Dose: 0.4 mg Zolpidem Tartrate (Ambien) 5 mg PO HS PRN PRN Reason: Insomnia Stop: 04/06/18 10:55 Last Admin: 02/10/18 20:57 Dose: 5 mg General: Alert, No acute distress HEENT: Atraumatic, PERRLA, EOMI Neck: Supple Cardiovascular: Regular rate, Normal S1 Lungs: Clear to auscultation Abdomen: Bowel sounds Neurological: Normal gait Assessment/Plan - Assessment Assessment: psychosis depression anxiety disorder HTN elevated Prostate CA h/o subdural hematoma UTI - Plan Plan: admit to [facility] continue current treatment. clonidine PRN Nutritional Asmnt/Malnutr-PDOC - Dietary Evaluation Malnutrition Findings (Please click <Entered> for more info): Nutritional Asmnt/Malnutrition Start: 02/09/18 10: 09 Text: Status: Active Freq: Protocol: Document 02/09/18 10:09 JESUS (Rec: 02/09/18 10:13 JESUS ANGI- [email or web address]) Nutritional Asmnt/Malnutrition Patient General Information Diagnosis psychosis Pertinent Medical Hx/Surgical Hx anxiety, depression, HTN, prostate CA, subdural hematoma , UTI Subjective Information Pt walking the halls, reported good appetite and no nutrition concerns at this time. Current Diet Order/ Nutrition Support regular Pertinent Medications oscal with vit D, colace, lasix, MOM, theragran, miralax Pertinent Labs 02/05: Na 137, K 4.3, Cl 103, CO2 24.4, BUN 20, Cr 0.9, glucose 144, Ca 9.3 Nutritional Hx/Data Height 1.78 m Height (Calculated Centimeters) 177.8 Current Weight (lbs) 67.132 kg Weight (Calculated Kilograms) 67.1 Weight (Calculated Grams) 19105.7 Body Mass Index (BMI) 21.2 Weight Status Approriate GI Symptoms GI Symptoms None Last BM 02/08 Cultural/Ethnic/Catholic Belief unknown Usual diet at home regular Skin Integrity/Comment: harmeet score 21 Estimated Nutritional Goals BEE in Kcals: Using Current wt Calories/Kcals/Kg 25-30kcals/kg Kcals Calculated 1675-2010kcals/day Protein: Using Current wt Protein g/kg/kg Protein Calculated 67g/day Fluid: ml 1675-2010ml/day (1ml/kcal) Nutritional Problem 1. Problem Problem No nutrition diagnosis at this time Intervention/Recommendation Comments Recommend continuing Regular diet Expected Outcomes/Goals Expected Outcomes/Goals PO intake >75% of meals
[2018-02-11] MEDS: Multivitamin Tab PO SCH (09:26)
[2018-02-11] MEDS: Calcium Carb/Vit D 500 mg/200 U Tab PO SCH ×2 (09:26→17:37)
[2018-02-11] MEDS: POLYETHYLENE GLYCOL 3350 17 GM PACK PO SCH (09:28)
--- NOTE | 2018-02-12 00:07 | Progress Notes ---
DATE: 02/11/2018 SUBJECTIVE: Staff was spoken to. The patient is interviewed. Mood is noted to be less irritable. Affect is appropriate. Insight and judgment are noted to be improving. Impulse control seems to be fair. The patient is stating that he compared to the time that he came in the suicidal ideation is resolving. No homicidal ideation is noted. Sleep is noted to be fair. Appetite is noted to be improving. ASSESSMENT: The patient is still depressed. PLAN: To continue the patient with the current medications and followup. JOB# [id number]
--- NOTE | 2018-02-12 08:13 | General Progress Note ---
Subjective - Review of Systems Service Date: 02/12/18 Subjective: Patient was seen and examined. VS T 98.2 P64 R18 BP 145/98 Objective - Results Result Diagrams: 02/05/18 12:15 02/05/18 12:15 Recent Labs: Laboratory Last Values WBC 6.0 Th/cmm (4.8-10.8) 02/05/18 12:15 RBC 4.30 Mil/cmm (3.80-5.80) 02/05/18 12:15 Hgb 13.8 gm/dL (12-16) 02/05/18 12:15 Hct 41.2 % (41.0-60) 02/05/18 12:15 MCV 95.7 fl (80-99) 02/05/18 12:15 MCH 32.2 pg (27.0-31.0) H 02/05/18 12:15 MCHC Differential 33.6 pg (28.0-36.0) 02/05/18 12:15 RDW 12.9 % (11.5-20.0) 02/05/18 12:15 Plt Count 276 Th/cmm (150-400) 02/05/18 12:15 MPV 5.6 fl 02/05/18 12:15 Neutrophils % 75.3 % (40.0-80.0) 02/05/18 12:15 Lymphocytes % 14.6 % (20.0-50.0) L 02/05/18 12:15 Monocytes % 8.1 % (2.0-10.0) 02/05/18 12:15 Eosinophils % 1.4 % (0.0-5.0) 02/05/18 12:15 Basophils % 0.6 % (0.0-2.0) 02/05/18 12:15 Sodium 137 mEq/L (136-145) 02/05/18 12:15 Potassium 4.3 mEq/L (3.5-5.1) 02/05/18 12:15 Chloride 103 mEq/L (98-107) 02/05/18 12:15 Carbon Dioxide 24.9 mEq/L (21.0-31.0) 02/05/18 12:15 Anion Gap 13.4 (7.0-16.0) 02/05/18 12:15 BUN 20 mg/dL (7-25) 02/05/18 12:15 Creatinine 0.9 mg/dL (0.7-1.3) 02/05/18 12:15 Est GFR ( Amer) TNP 02/05/18 12:15 Est GFR (Non-Af Amer) TNP 02/05/18 12:15 BUN/Creatinine Ratio 22.2 02/05/18 12:15 Glucose 144 mg/dL (70-105) H 02/05/18 12:15 Calcium 9.3 mg/dL (8.6-10.3) 02/05/18 12:15 Total Bilirubin 0.3 mg/dL (0.3-1.0) 02/05/18 12:15 AST 19 U/L (13-39) 02/05/18 12:15 ALT 15 U/L (7-52) 02/05/18 12:15 Alkaline Phosphatase 68 U/L (34-104) 02/05/18 12:15 Total Protein 6.9 gm/dL (6.0-8.3) 02/05/18 12:15 Albumin 3.9 gm/dL (4.2-5.5) L 02/05/18 12:15 Globulin 3.0 gm/dL 02/05/18 12:15 Albumin/Globulin Ratio 1.3 (1.0-1.8) 02/05/18 12:15 Triglycerides 106 mg/dL (<150) 02/05/18 12:15 Cholesterol 159 mg/dL (<200) 02/05/18 12:15 LDL Cholesterol Direct 83 mg/dL (75-193) 02/05/18 12:15 HDL Cholesterol 61 mg/dL (23-92) 02/05/18 12:15 RPR NONREACTIVE (NONREACTIVE) 02/05/18 12:15 - Physical Exam Vitals and I&O: Vital Signs Temp 98.2 F 02/12/18 06:47 Pulse 64 02/12/18 06:47 Resp 18 02/12/18 06:47 BP 145/98 02/12/18 06:47 Pulse Ox 97 02/12/18 06:47 Intake & Output 02/11/18 02/12/18 02/12/18 18:59 06:59 18:59 Intake Total 750 180 Balance 750 180 Intake: Oral 750 180 Other: # Voids 3 2 # Bowel Movements 1 1 Stool Characteristics Formed Brown Active Medications: Current Medications Acetaminophen (Tylenol) 650 mg PO Q4HR PRN PRN Reason: Mild Pain / Temp above 100 Stop: 04/06/18 10:55 Bupropion HCl (Wellbutrin Sr) [address] [facility]; Protocol Stop: 04/10/18 08:59 Last Admin: 02/11/18 09:26 Dose: 100 mg Calcium/Vitamin D (Oscal W/Vitamin D) [address] [facility] Stop: 04/06/18 16:59 Last Admin: 02/11/18 17:37 Dose: 1 tab Docusate Sodium (Colace) [address] [facility] Stop: 04/06/18 16:59 Last Admin: 02/11/18 17:37 Dose: Not Given Furosemide (Lasix) 20 mg PO DAILY PRN PRN Reason: Leg Swelling Stop: 04/07/18 08:59 Lorazepam (Ativan) 0.5 mg PO Q4HR PRN; Protocol PRN Reason: Agitation Stop: 03/07/18 10:55 Magnesium Hydroxide (Milk Of Magnesia) 30 ml PO HS PRN PRN Reason: Constipation Metoprolol Tartrate (Lopressor) [address] [facility] Stop: 04/06/18 16:59 Last Admin: 02/11/18 17:36 Dose: 25 mg Mirtazapine (Remeron) 7.[address] [facility]; Protocol Stop: 04/07/18 20:59 Last Admin: 02/11/18 20:45 Dose: 7.5 mg Multivitamins/Vitamin C (Theragran) [address] [facility] Stop: 04/07/18 08:59 Last Admin: 02/11/18 09:26 Dose: 1 tab Polyethylene Glycol (Miralax) [address] [facility] Stop: 04/07/18 08:59 Last Admin: 02/11/18 09:28 Dose: Not Given Tamsulosin HCl (Flomax) 0.[address] [facility] Stop: 04/07/18 08:59 Last Admin: 02/11/18 09:26 Dose: 0.4 mg Zolpidem Tartrate (Ambien) 5 mg PO HS PRN PRN Reason: Insomnia Stop: 04/06/18 10:55 Last Admin: 02/11/18 20:45 Dose: 5 mg General: Alert, No acute distress HEENT: Atraumatic, PERRLA, EOMI Neck: Supple Cardiovascular: Regular rate, Normal S1 Lungs: Clear to auscultation Abdomen: Bowel sounds Neurological: Normal gait Assessment/Plan - Assessment Assessment: psychosis depression anxiety disorder HTN elevated Prostate CA h/o subdural hematoma UTI - Plan [facility] current treatment. clonidine PRN Nutritional Asmnt/Malnutr-PDOC - Dietary Evaluation Malnutrition Findings (Please click <Entered> for more info): Nutritional Asmnt/Malnutrition Start: 02/09/18 10: 09 Text: Status: Active Freq: Protocol: Document 02/09/18 10:09 JESUS (Rec: 02/09/18 10:13 JESUS [email or web address]- [email or web address]) Nutritional Asmnt/Malnutrition Patient General Information Diagnosis psychosis Pertinent Medical Hx/Surgical Hx anxiety, depression, HTN, prostate CA, subdural hematoma , UTI Subjective Information Pt walking the halls, reported good appetite and no nutrition concerns at this time. Current Diet Order/ Nutrition Support regular Pertinent Medications oscal with vit D, colace, lasix, MOM, theragran, miralax Pertinent Labs 02/05: Na 137, K 4.3, Cl 103, CO2 24.4, BUN 20, Cr 0.9, glucose 144, Ca 9.3 Nutritional Hx/Data Height 1.78 m Height (Calculated Centimeters) 177.8 Current Weight (lbs) 67.132 kg Weight (Calculated Kilograms) 67.1 Weight (Calculated Grams) 65467.7 Body Mass Index (BMI) 21.2 Weight Status Approriate GI Symptoms GI Symptoms None Last BM 02/08 Cultural/Ethnic/Anabaptist Belief unknown Usual diet at home regular Skin Integrity/Comment: harmeet score 21 Estimated Nutritional Goals BEE in Kcals: Using Current wt Calories/Kcals/Kg 25-30kcals/kg Kcals Calculated 1675-2010kcals/day Protein: Using Current wt Protein g/kg/kg Protein Calculated 67g/day Fluid: ml 1675-2010ml/day (1ml/kcal) Nutritional Problem 1. Problem Problem No nutrition diagnosis at this time Intervention/Recommendation Comments Recommend continuing Regular diet Expected Outcomes/Goals Expected Outcomes/Goals PO intake >75% of meals
[2018-02-12] MEDS: Multivitamin Tab PO SCH (09:41)
[2018-02-12] MEDS: POLYETHYLENE GLYCOL 3350 17 GM PACK PO SCH (09:41)
[2018-02-12] MEDS: Calcium Carb/Vit D 500 mg/200 U Tab PO SCH (09:42)
--- NOTE | 2018-02-12 21:03 | Discharge Summary ---
DATE OF DISCHARGE: 02/12/2018 IDENTIFYING DATA: The patient is an 82-year-old male living with his family. JUSTIFICATION OF HOSPITALIZATION: The patient is admitted on 5150 as a danger to self. CHIEF COMPLAINT: "I'm feeling depressed." DIAGNOSES AT THE TIME OF ADMISSION: AXIS I: Major depressive disorder, recurrent and severe. AXIS II: None. AXIS III: As per Dr. Elena. HISTORY OF PRESENT ILLNESS: Please refer the 02/05/2018 dictation done by me. Physical examination at the time of admission was done by Dr. Elena and the lab studies done at the hospitalization have been reviewed and MCH is noted to be 32.2, lymphocytes are noted to be 14.6, glucose is noted to be 144. HOSPITAL COURSE AND RESPONSE TO TREATMENT: The patient has been observed on inpatient unit. Initially, the patient has been placed on the Remeron, which was decreased to 7.5 mg in view of his depression. The patient has been placed on the Wellbutrin-SR 100 mg on a daily basis. The patient has been observed with this medication and metoprolol has been given for his blood pressure. The patient has been seen for individual counseling and the family has been met on couple of occasions. The patient started to do fairly well and the patient's mentioned that the patient is scheduled to have a study done on Sunday morning and the patient's wants him to be discharged. The patient by that time is not noted to be suicidal or homicidal and hence the patient was discharged. MENTAL STATUS EXAMINATION AT THE TIME OF DISCHARGE: The patient's mood is noted to be anxious. Affect is appropriate. Not suicidal or homicidal. The patient denies any auditory hallucinations. No delusions are noted. The patient is motivated to seek treatment. DIAGNOSES AT THE TIME OF DISCHARGE: AXIS I: Major depressive disorder, recurrent and moderate. AXIS II: None. AXIS III: Hypertension. AFTERCARE PLAN: The patient is discharged to the family for followup on outpatient basis. PROGNOSIS: At the time of discharge is noted to be fair with the treatment. JOB# [id number]
== END 2018-02-12 13:00 | disposition home or self-care (01) | DRG 885 ==
LOC: GERO2 09:29 → GERO 02-06 16:41
PROVIDERS: ADMIT Psychiatry & Neurology Psychiatry; ATTEND Psychiatry & Neurology Psychiatry
DX: F33.2 Major depressive disorder, recurrent severe without psychotic features (principal); N39.0 Urinary tract infection, site not specified; R45.851 Suicidal ideations; F29 Unspecified psychosis not due to a substance or known physiological condition; F41.9 Anxiety disorder, unspecified; I10 Essential (primary) hypertension; Z85.46 Personal history of malignant neoplasm of prostate
CPT/HCPCS: 36415-UA; 71045-TC; 80053-TC; 80061-TC; 83036-90; 85025-TC; 86592-TC; 93005; Z7610